=== PATIENT | male | born 1990 | race Caucasian/White ===

== ENCOUNTER 2016-11-16 00:55 | Emergency (ER) | payer SELFPAY ==
--- NOTE | 2016-11-16 03:13 | ER ---
ADMIT: 11/16/2016 RM/LOC: ER [facility] MR#: [id number] [facility] [id number] [place], [place] [id number] KRISTIE BUTTERFIELD [address] [place] [address] Emergency Room Report SEX: M AGE: 26 : 1990 DATE: 11/16/2016 The patient is a 26-year-old male in police custody for resisting arrest, was tased in his back and buttock, no injuries. Exam remarkable for nontoxic and cooperative male, with stable vital signs. No evidence of taser prongs in body. Released in police custody. Avelino Barber MD/ mac JOB #: [id number] CC: Avelino Barber MD, Attending Physician Walter Hastings MD, Family Physician Walter Hastings MD
== END 2016-11-16 01:10 ==
LOC: ER 00:55
DX: T75.4XXA Electrocution, initial encounter (principal); S30.0XXA Contusion of lower back and pelvis, initial encounter; Y35.891A Legal intervention involving other specified means, law enforcement official injured, initial encounter